=== PATIENT | female | born 1960 | race Two or more races ===

== ENCOUNTER 2018-06-06 09:50 | Emergency (ER) | payer OTHER ==
[~2018-06-06] VITALS: Ht 152.4 cm; Wt 64.4 kg
[~2018-06-06 09:50] MED LIST: COZAAR25 MG PO; IPRAT-ALBUT 0.5-3 ML IH; MEDROLPACK PO; SINGULAIR 10MG10 MG; TESSALON PERLE100 M1 PO; XOPENEX0.63 MG/3 IH
[2018-06-06] MEDS ORDERED: ENALAPRIL MALEA10 MG (10:04)
== END 2018-06-06 13:37 | disposition home or self-care (01) ==
LOC: ER 09:50
DX: J45.998 Other asthma (principal)

== ENCOUNTER 2018-10-16 21:02 | Emergency (ER) | payer OTHER ==
[~2018-10-16] VITALS: Ht 152.4 cm; Wt 67.1 kg
[~2018-10-16 21:02] MED LIST changes: +ENALAPRIL MALEA10 MG
[2018-10-16] MEDS ORDERED: SYMBICORT 80/10.2 GM (21:55)
[2018-10-16] MEDS ORDERED: FLONASE16 GM (21:56)
[2018-10-16] MEDS ORDERED: SINGULAIR10 MG (21:56)
== END 2018-10-17 13:49 | disposition home or self-care (01) ==
LOC: ER 21:02
DX: J45.998 Other asthma (principal)

== ENCOUNTER 2023-09-23 15:45 | Emergency (ER) | payer OTHER ==
[~2023-09-23] VITALS: Ht 152.4 cm; Wt 63.5 kg
[~2023-09-23 15:45] MED LIST changes: +FLONASE16 GM; +SINGULAIR10 MG; +SYMBICORT 80/10.2 GM
[2023-09-23] MEDS ORDERED: DIOVAN40 MG (16:22)
[2023-09-23 17:38] LABS: HEMATOCRIT 43.9 % (36.0-45.00); HEMOGLOBIN 14.2 g/dL (12.0-15.00); MEAN CELL VOLUME 89.7 fL (80.00-100.00); MEAN CORPUSCULAR HEMOGLOBIN 29.1 pg (27.00-32.0); MEAN CORPUSCULAR HGB CONC 32.4 g/dl (32.0-36.0); PLATELET COUNT 244 K/uL (150-450); RED BLOOD COUNT 4.89 M/uL (4.00-6.00); RED CELL DISTRIBUTION WIDTH 13.1 % (11.5-14.5)
[2023-09-23 17:42] LABS: PH,URINE 6.5 (5.0-8.0); URINE APPEARANCE Clear; URINE BILIRRUBIN Negative (NEGATIVE); URINE BLOOD Negative; URINE COLOR Yellow; URINE GLUCOSE Negative (NEGATIVE); URINE LEUKOCYTE Negative; URINE NITRATE Negative; URINE PROTEIN Negative (NEGATIVE); URINE UROBILINOGEN 0.2 E.U./dl
[2023-09-23 17:46] LABS: URINE BACTERIA 7.5 uL (0.0-1933); URINE EPITHELIAL CELLS 2.1 uL (0.0-38.8); URINE RBC 5.4 uL (0.0-20.8)
[2023-09-23 17:55] LABS: URINE WBC 0.9 uL (0.0-23.2)
[2023-09-23 18:00] LABS: CALCIUM 8.8 mg/dL (8.5-10.1); CREATININE SERUM 0.8 mg/dL (0.55-1.02); GFR 72.44; POTASSIUM 3.7 mEq/L (3.5-5.1)
[2023-09-23] MEDS ORDERED: VISTARIL25 MG PO (18:19)
== END 2023-09-23 18:55 | disposition home or self-care (01) ==
LOC: ER 15:45
PROVIDERS: General Practice
DX: K52.89 Other specified noninfective gastroenteritis and colitis (principal)

== ENCOUNTER 2023-10-20 09:01 | Emergency (ER) | payer OTHER ==
[~2023-10-20] VITALS: Ht 160 cm; Wt 63.5 kg
[~2023-10-20 09:01] MED LIST changes: +DIOVAN40 MG; +VISTARIL25 MG PO
[2023-10-20 12:50] LABS: HEMATOCRIT 39.1 % (36.0-45.00); MEAN CELL VOLUME 89.2 fL (80.00-100.00); MEAN CORPUSCULAR HEMOGLOBIN 29.6 pg (27.00-32.0); MEAN CORPUSCULAR HGB CONC 33.2 g/dl (32.0-36.0); PLATELET COUNT 291 K/uL (150-450); RED BLOOD COUNT 4.38 M/uL (4.00-6.00); RED CELL DISTRIBUTION WIDTH 13.7 % (11.5-14.5)
[2023-10-20 13:57] LABS: CALCIUM 8.9 mg/dL (8.5-10.1); CREATININE SERUM 0.67 mg/dL (0.55-1.02); GFR 88.89; POTASSIUM 3.65 mEq/L (3.5-5.1)
[2023-10-20] MEDS ORDERED: SINGULAIR10 MG PO (14:33)
[2023-10-20] MEDS ORDERED: FLONASE ALLERG9.9 ML NASAL (14:33)
[2023-10-20] MEDS ORDERED: MUCINEX1200 MG PO (14:33)
[2023-10-20] MEDS ORDERED: ZITHROMAX500 MG PO (14:33)
[2023-10-20] MEDS ORDERED: MEDROLPACK PO (14:42)
== END 2023-10-20 15:00 | disposition home or self-care (01) ==
LOC: ER 09:01
PROVIDERS: General Practice
DX: U07.1 COVID-19 (principal)

== ENCOUNTER 2023-12-16 08:08 | Emergency (ER) | payer OTHER ==
[~2023-12-16] VITALS: Ht 152.4 cm; Wt 63.5 kg
[~2023-12-16 08:08] MED LIST changes: +FLONASE ALLERG9.9 ML NASAL; +MUCINEX1200 MG PO; +SINGULAIR10 MG PO; +ZITHROMAX500 MG PO
[2023-12-16 09:50] LABS: ABG PH 7.453 (7.35-7.45); ABG PO2 75.3 mmHg (80-100); BASE EXCESS 1.6 mmol/l; BICARBONATE 25.3 mmol/l (23-25); SaO2 95.7 %; Tco2 26.5 mmol/l; o2 21 %
[2023-12-16 09:51] LABS: allen test SATISFACTORY; puncture site RADIAL LEFT
[2023-12-16 10:26] LABS: HEMATOCRIT 39.6 % (36.0-45.00); HEMOGLOBIN 13.3 g/dL (12.0-15.00); MEAN CELL VOLUME 87.9 fL (80.00-100.00); MEAN CORPUSCULAR HEMOGLOBIN 29.6 pg (27.00-32.0); MEAN CORPUSCULAR HGB CONC 33.6 g/dl (32.0-36.0); PLATELET COUNT 272 K/uL (150-450); RED BLOOD COUNT 4.51 M/uL (4.00-6.00); RED CELL DISTRIBUTION WIDTH 13.9 % (11.5-14.5)
[2023-12-16 10:45] LABS: ALBUMIN 3.8 gm/dL (3.4-5.0); BILIRUBIN TOTAL 0.4 mg/dL (0.3-1.2); CREATININE SERUM 0.69 mg/dL (0.55-1.02); GFR 85.65; GLOBULINA 3.6 G/DL (2.4-3.5); POTASSIUM 3.7 mEq/L (3.5-5.1); TOTAL PROTEIN 7.4 gm/dL (6.4-8.2)
[2023-12-16] MEDS ORDERED: TUSNEL LIQUID178 ML PO (11:12)
[2023-12-16] MEDS ORDERED: MEDROLPACK PO (11:12)
== END 2023-12-16 11:37 | disposition home or self-care (01) ==
LOC: ER 08:08
PROVIDERS: General Practice
DX: J45.909 Unspecified asthma, uncomplicated (principal); Z20.822 Contact with and (suspected) exposure to COVID-19; Z88.0 Allergy status to penicillin; Z88.2 Allergy status to sulfonamides; I10 Essential (primary) hypertension